=== PATIENT | female | born 1955 | race Caucasian/White ===

== ENCOUNTER 2016-12-20 12:09 | Emergency (ER) | payer MEDICARE, BC ==
[~2016-12-20] VITALS: Ht 172.7 cm; Wt 77.0 kg
[~2016-12-20 12:09] MED LIST: AMBI5TAB PO; AUGM875T PO; BUPR150CR PO; CITA40TA4 PO; GABA800T PO; HYDR5SYP10 PO; LANS30CA PO; METF1000 PO; MOME17I EACH NARE; ROSU10 PO; TIZA2CAP3 PO
[2016-12-20 12:26] VITALS: BP 128/64; PULSE 65; RESP 15; TEMP 97.7; O2SAT 98
[2016-12-20] MEDS ORDERED: DEXAMETHASONE SOD PHOS 20 MG/5 ML VIAL IM ONE (15:30)
[2016-12-20] MEDS ORDERED: ORPHENADRINE INJ 60 MG/2 ML AMP IM ONE (15:30)
[2016-12-20] MEDS ORDERED: KETOROLAC TROMETHAMINE 60 MG/2 ML (IM) VIAL IM ONE (15:30)
[2016-12-20] MEDS ORDERED: ONDANSETRON ODT 4 MG TAB PO ONE (15:30)
--- NOTE | 2016-12-20 15:31 | PD ---
HPI Chief Complaint: Back/ Neck Pain or Injury Time Seen by Provider: 15:28 Travel History International Travel<30 days: No Contact w/Intl Traveler<30days: No Traveled to known affect area: No History of Present Illness HPI Patient is a 61-year-old female presenting to the emergency department for evaluation of low back pain. Patient states she got out of the shower yesterday morning and bent down to picker and packer her nightgown and when she stood up her back tightened up. She denies any numbness or tingling in her lower extremities, no bladder or bowel incontinence, no saddle paresthesia. Patient reports the pain is a 10 out of 10 and feels tight and sore.. She took ibuprofen and tizanidine last night only. PFSH Past Medical History Anxiety: Yes Depression: Yes Cancer: No Cardiovascular Problems: No Diabetes: Yes Diminished Hearing: No Endocrine: No Genitourinary: No Hepatitis: No Hiatal Hernia: No Hypertension: Yes Immune Disorder: No Musculoskeletal: Yes (arthritis ) Neurologic: No Reproductive: No Respiratory: No Immunizations Current: Yes Migraines: Yes Thyroid Disease: No Menopausal: Yes Past Surgical History Abdominal Surgery: No AICD: No Body Medical Devices: hardware in neck from surgery Ear Surgery: No Endocrine Surgery: No Eye Surgery: No Genitourinary Surgery: No Joint Replacement: No Oral Surgery: No Pacemaker: No Thoracic Surgery: Yes (CERVICAL FUSION 2012) Tonsillectomy: Yes Other Surgery: Yes (hip surgery) Social History Alcohol Use: Yes (OCC) Tobacco Use: No Substance Use: No Allergies-Medications (Allergen,Severity, Reaction): Coded Allergies: No Known Allergies (Unverified , 12/20/16) Reported Meds & Prescriptions Reported Meds & Active Scripts Active Metformin (Metformin HCl) 1,000 Mg Tab 1,000 Mg PO BIDPC With meals Reported Levocetirizine 5 Mg Tab 5 Mg PO DAILY Motrin Ib (Ibuprofen) 200 Mg Tab 800 Mg PO Q4H PRN Gabapentin 800 Mg Tab 800 Mg PO QID Lansoprazole 30 Mg Capdr 30 Mg PO DAILY Tizanidine (Tizanidine HCl) 2 Mg Cap 2 Mg PO HS Citalopram (Citalopram Hydrobromide) 40 Mg Tab 40 Mg PO DAILY Wellbutrin SR 12 HR (Bupropion HCl) 150 Mg Tab 450 Mg PO DAILY Review of Systems Except as stated in HPI: all other systems reviewed are Neg Musculoskeletal: Positive: Myalgias, Cramping, Pain Physical Exam Narrative GENERAL: Well-developed, well-nourished, alert elderly female. Appears uncomfortable, in no acute distress. SKIN: Focused skin assessment warm/dry. HEAD: Atraumatic. Normocephalic. EYES: Pupils equal and round. No scleral icterus. No injection or drainage. ENT: No nasal bleeding or discharge. Mucous membranes pink and moist. NECK: Trachea midline. No JVD. CARDIOVASCULAR: Regular rate and rhythm. No murmur appreciated. RESPIRATORY: No accessory muscle use. Clear to auscultation. Breath sounds equal bilaterally. GASTROINTESTINAL: Abdomen soft, non-tender, nondistended. Hepatic and splenic margins not palpable. MUSCULOSKELETAL: No obvious deformities. No clubbing. No cyanosis. No edema. Tenderness to palpation paraspinal musculature in the lumbar region more so on the right than the left. Full range of motion in bilateral lower extremities. Patient is neurovascularly intact. Patient observed ambulating in the emergency department with cane. NEUROLOGICAL: Awake and alert. No obvious cranial nerve deficits. Motor grossly within normal limits. Normal speech. PSYCHIATRIC: Appropriate mood and affect; insight and judgment normal. Data Data Last Documented VS Vital Signs Date Time Temp Pulse Resp B/P Pulse Ox O2 Delivery O2 Flow Rate FiO2 12/20/16 12:26 97.7 65 15 128/64 98 Orders Ketorolac Inj (Toradol Inj) (12/20/16 15:30) Orphenadrine Inj (Norflex Inj) (12/20/16 15:30) Dexamethasone Inj (Decadron Inj) (12/20/16 15:30) Ondansetron Odt (Zofran Odt) (12/20/16 15:30) Hip, Uni(Ap&Lat) Wo Ap Pelvis (12/20/16 ) MDM Medical Decision Making Medical Screen Exam Complete: Yes Emergency Medical Condition: Yes Interpretation(s) Vital Signs Date Time Temp Pulse Resp B/P Pulse Ox O2 Delivery O2 Flow Rate FiO2 12/20/16 12:26 97.7 65 15 128/64 98 Differential Diagnosis Sprain versus strain versus discogenic pain versus other Narrative Course Patient is a 61-year-old female presenting to return for evaluation of low back pain that resulted after she bent down to picker and packer her nightgown yesterday morning. Exam appears most consistent with muscle spasms, muscle strain. Patient is neurovascularly and neurologically intact. Patient will be given Toradol, dexamethasone, Norflex in the emergency department. Will reassess. Patient reports improvement in her pain. Imaging of the right hip was negative , hardware is intact. Patient is encouraged follow-up with her primary doctor, alternate heat and ice the affected area, continue range of motion exercises, avoid bed rest. She was encouraged return to emergency department any new or worsening symptoms. Patient is stable for discharge. Diagnosis Primary Impression: Strain of lumbar paraspinal muscle Qualified Code: S39.012A - Strain of lumbar paraspinal muscle, initial encounter Additional Impression: Spasm of lumbar paraspinous muscle Referrals: Primary Care Physician Patient Instructions: General Instructions, Muscle Spasm (ED), Muscle Strain ( ED) Additional Instructions: Follow-up with her primary doctor Alternate heat and ice the affected area, continue range of motion exercises, avoid bed rest, avoid exacerbating activities Take medications as directed Do not drive or operate heavy machinery taking narcotic pain medication Return to emergency department for any new or worsening symptoms Med/Other Pt SpecificInfo: Prescription(s) given Scripts Ibuprofen 800 Mg [id number] Mg PO Q8H PRN (Pain/Inflammation) 10 Days Ref 0 Prov:Ree Dave 12/20/16 Cyclobenzaprine (Flexeril)10 Mg Tab10 Mg PO TID PRN (MUSCLE SPASM) 10 Days Ref 0 Prov:Ree Dave 12/20/16 Tramadol 50 Mg Tab50 Mg PO Q6H PRN (PAIN) #10 TAB Ref 0 Prov:Timothy Kaur MD 12/20/16 Disposition: 01 DISCHARGE HOME Condition: Stable Ree Dave Dec 20, 2016 15:31
[2016-12-20] MEDS ORDERED: LEVOTAB PO (15:38)
[2016-12-20] MEDS ORDERED: MOTR200T4 PO (15:38)
--- NOTE | 2016-12-20 16:38 | RADHPO ---
EXAM DATE/TIME: 12/20/2016 16:20 [facility] COMPARISON: HIP RIGHT (AP&LAT 2/3VWS) WO AP PELVIS, November 30, 2015, 11:24. INDICATIONS : Right hip and lower back pain after patient bent over too far yesterday MEDICAL HISTORY : None. SURGICAL HISTORY : Total right hip replacement ENCOUNTER: Initial ACUITY: 1 day PAIN SCORE: 9/10 LOCATION: Right entire hip FINDINGS: A right hip arthroplasty is present. There are no radiographic findings to suggest loosening. There i s no evidence of acute fracture. Bony mineralization is normal. CONCLUSION: 1. There is no evidence of acute fracture. Tenzin Leal MD on December 20, 2016 at 16:37 Board Certified Radiologist. This report was verified electronically.
[2016-12-20] MEDS ORDERED: TRAM50TA PO (16:43)
[2016-12-20] MEDS ORDERED: CYCL1TAB29 PO (16:48)
[2016-12-20] MEDS ORDERED: IBUP800T23 PO (16:48)
[2016-12-26] MEDS ORDERED: TRAM50TA PO (11:05)
[2016-12-26] MEDS ORDERED: CYCL1TAB29 PO (11:06)
[2016-12-26] MEDS ORDERED: DICY10 PO (11:07)
[2016-12-26] MEDS ORDERED: KETO60IN6 IM (11:12)
[2016-12-26] MEDS ORDERED: METH125I2 IM (11:13)
[2016-12-26] MEDS ORDERED: ZOFR4TAB PO (11:17)
[2017-01-03] MEDS ORDERED: TRAM50TA PO (14:52)
== END 2016-12-20 16:59 | disposition home or self-care (01) ==
LOC: PHED 12:09 → PHEFT 16:59
DX: S39.012A Strain of muscle, fascia and tendon of lower back, initial encounter (principal); M62.830 Muscle spasm of back; E11.9 Type 2 diabetes mellitus without complications; I10 Essential (primary) hypertension; M19.90 Unspecified osteoarthritis, unspecified site; X50.1XXA Overexertion from prolonged static or awkward postures, initial encounter; Y92.002 Bathroom of unspecified non-institutional (private) residence as the place of occurrence of the external cause; F41.9 Anxiety disorder, unspecified; F32.9 Major depressive disorder, single episode, unspecified
CPT/HCPCS: 73502; 96372; 99283; J1100; J1885; J2360

== ENCOUNTER 2017-07-31 05:08 | Inpatient (IN) | payer MEDICARE, BC ==
[~2017-07-31] VITALS: Ht 172.7 cm; Wt 78.0 kg
[~2017-07-31 05:08] MED LIST changes: -AMBI5TAB PO; -AUGM875T PO; +CALC1TAB87 PO; +GLUC500T4 PO; -HYDR5SYP10 PO; +IBUP1TAB7 PO; +LEVOTAB PO; +METF-382 PO; -METF1000 PO; -MOME17I EACH NARE; +MULT-65 PO; +SACC1CAP3 PO; +TRAM50TA PO; +VITA1000 PO; +VITA100022 PO; +VITA500C18 PO; +ZOFR4TAB PO
[2017-07-31] MEDS ORDERED: BUPIVACAINE LIPOSOME PF 1.3% 20 ML VIAL ONE (05:58)
[2017-07-31] MEDS ORDERED: ONDANSETRON HCL 4 MG/2 ML VIAL ONE (05:59)
[2017-07-31] MEDS ORDERED: INSULIN HUMAN REGULAR 1,000 UNITS/10 ML VIAL SQ PRN (06:00)
[2017-07-31] MEDS ORDERED: CHLORHEXIDINE GLUCONATE 2 % 1 PACK (2 CLOTHS) TOPICAL PRN (06:00)
[2017-07-31] MEDS ORDERED: SODIUM CHLORID 0.9% 500 ML IV PRN (06:00)
[2017-07-31] MEDS ORDERED: METOPROLOL TARTRATE 25 MG TAB PO PRN (06:00)
[2017-07-31] MEDS ORDERED: POVIDONE IODINE 5% (ANTISEPSIS KIT) 4 APPLICATIONS EACH NARE PRN (06:00)
[2017-07-31] MEDS ORDERED: LACTATED RINGER'S 1000 ML IV PRN (06:00)
[2017-07-31] MEDS ORDERED: CHLORHEXIDINE GLUCONATE 4% SOLN 120 ML BTL TOPICAL SCH (06:00)
[2017-07-31] MEDS ORDERED: ceFAZolin 2 GM PREMIX 50 ML IV SCH (06:00)
[2017-07-31] MEDS ORDERED: GENTAMICIN SULFATE 80 MG/2 ML VIAL ONE (06:05)
[2017-07-31] MEDS ORDERED: EXPAREL PERI-ARTICULAR INJECTION (TOTAL VOL. 100 ML) P-ARTICULR SCH ×2 (07:00)
[2017-07-31] MEDS ORDERED: Post-op Orders (for Pharmacy) MISC XX ONE (07:00)
[2017-07-31] MEDS ORDERED: ONDANSETRON HCL 4 MG/2 ML VIAL IVP PRN (07:00)
[2017-07-31] MEDS ORDERED: TRANEXAMIC ACID INJ 0 MG in SODIUM CHLORIDE 0.9% INJ 100 ML IV SCH (07:00)
[2017-07-31] MEDS ORDERED: SODIUM CHLORIDE 0.9% FLUSH 5 ML FLUSH IVF PRN (07:00)
[2017-07-31] MEDS ORDERED: ZOLPIDEM TARTRATE 5 MG TAB PO PRN (07:00)
[2017-07-31] MEDS ORDERED: TRANEXAMIC ACID INJ 779 MG in SODIUM CHLORIDE 0.9% INJ 100 ML IV SCH ×2 (07:00→10:00)
[2017-07-31] MEDS ORDERED: MAGNESIUM HYDROXIDE SUSP 30 ML CUP PO PRN (07:00)
--- NOTE | 2017-07-31 07:06 | HHI.FF ---
Face to Face Verification Diagnosis: (1) Status post total left knee replacement Physical Therapy Gait training Knee: Total knee, Protocol: Left, Gait training, Full weight bearing Left LE Weight Bearing: WB as tolerated Left LE Range of Motion: Active ROM (AROM, AAROM, PROM. ROM goal 0 to 135 degrees. ROM in the OR was 0 to 150 degrees.) Nursing Nursing: Dressing changes (Start on postop day 7.) Dressing Changes: Daily dressing change (Start on postop day 7.), Coverderm/ Prim[place] Additional Instructions Remove steristrips on postop day 14. I have seen patient Rasheeda Sandhu on 07/31/17. My clinical findings support the need for the requested home health care services because: Ltd mobility - disease progression Limited ability to care for self High risk of falls I certify that my clinical findings support that this patient is homebound because: Post-op weakness Unsteady gait/balance Unsafe to leave home unassisted Tressa Clay MD (Charles) Jul 31, 2017 07:06
[2017-07-31] MEDS ORDERED: DEXAMETHASONE SOD PHOS 4 MG/ML VIAL IV PUSH ONE (07:51)
[2017-07-31] MEDS ORDERED: KETOROLAC TROMETHAMINE 30 MG/ML (IVP) VIAL IVP SCH (08:00)
[2017-07-31] MEDS ORDERED: NON-FORMULARY DRUG (Glucosamine-Chondroitin 1 TAB) PO SCH (09:00)
[2017-07-31] MEDS ORDERED: NON-FORMULARY DRUG (Ascorbic Acid ER (Vitamin C Sr) 500 MG) PO SCH (09:00)
[2017-07-31] MEDS ORDERED: metFORMIN HCL 500 MG TAB PO SCH (09:00)
[2017-07-31] MEDS: SODIUM CHLORIDE 0.9% FLUSH 5 ML FLUSH IVF SCH ×2 (09:00→20:49)
[2017-07-31] MEDS ORDERED: PT OWN MED: LEVOCETIRIZINE 5MG PO DAILY PO SCH (09:00)
[2017-07-31] MEDS ORDERED: NON-FORMULARY DRUG (Saccharomyces Boulardii (Probiotic) 250 MG) PO SCH (09:00)
[2017-07-31] MEDS ORDERED: ASPI1TAB56 PO (09:34)
--- NOTE | 2017-07-31 09:41 | HHI.PR ---
Immediate Post Op Note Procedure Date: Jul 31, 2017 Pre Op Diagnosis: (1) Primary osteoarthritis of left knee Post Op Diagnosis: (1) Primary osteoarthritis of left knee Surgeon: Breezy Clay MD Electronic Heat Seal Operator(s): FELY Oviedo Procedure: Left total knee arthroplsaty with Halley Triathlon prosthesis, uncemented. Findings: OA left knee. Complications: None Specimen(s) removed: none Estimated blood loss: 300 ml Anesthesia: Regional Block (adductor canal), Spinal, Local Drains: Hemovac (2) Tourniquet time (min at mmHg) 0 Patient to: PACU Patient Condition: Good Implant/Devices: SEE IMPLANT LOG (if applicable) Date/Time of Procedure: SEE SURGICAL CARE RECORD Tressa Clay MD (Charles) Jul 31, 2017 09:41
[2017-07-31] MEDS ORDERED: DO NOT ADM ANY ANTICOAGULANT DRUGS PRN (09:50)
[2017-07-31] MEDS ORDERED: *morphine SULFATE 8 MG/ML PERIprocedure ONLY ONE ×3 (10:00→10:39)
[2017-07-31] MEDS: LACTATED RINGER'S 1000 ML INJ 1,000 ML IV SCH ×2 (10:00→19:30)
--- NOTE | 2017-07-31 10:21 | MP ---
cc: Mitzy MCKNIGHT. DATE OF SURGERY: 07/31/2017 PREOPERATIVE DIAGNOSIS Primary osteoarthritis, left knee. POSTOPERATIVE DIAGNOSIS Primary osteoarthritis, left knee. OPERATION PERFORMED Left total knee arthroplasty with Halley Triathlon prosthesis (uncemented). SURGEON Tressa Mcknight MD ANESTHESIA Spinal with supplemental adductor canal block regional and local with Exparel. INDICATIONS AND FINDINGS This 62-year-old woman has had left knee pain that has been progressive in nature and beginning about eight years ago. Her ambulation tolerance is now one mile. She has stiffness on motion. She has occasional giving-way and difficulty ascending and descending stairs. She has pain when sitting for any period of time. Treatment has included anti-inflammatory agents, analgesics, activity modification, intraarticular steroids, Synvisc injections, ambulatory aids and exercise. This has not helped her. Physical findings showed some medial laxity with genu varum and palpable osteophytes. X-rays showed osteoarthritis with loss of articular cartilage to [id number] in the medial compartment with subchondral sclerosis and multiple osteophytes. Operative findings were consistent with the radiographic findings with there being loss of articular cartilage to exposed subchondral bone in the medial compartment especially with also some patellofemoral and lateral compartment degenerative change. Osteophytes were noted. IMPLANTS The prosthesis used was a Halley Triathlon prosthesis with the femur being a size 5, left cruciate-retaining, uncemented, tibia being a tritanium baseplate size 4, and the spacer a size 4 x 9 mm cruciate-retaining of X3 polyethylene. The patella was an asymmetric tritanium backed patella size 35 mm. PROCEDURE The patient was brought to the clean-air operating suite and a spinal anesthetic and adductor canal block were performed. She was then placed in a supine position on the operating table with a bolster under the left hip and pneumatic tourniquet about the left thigh. The limb was then prepped with alcohol, Hibiclens and ChloraPrep, and draped in the usual manner with the knee draped free. She received Ancef as a prophylactic antibiotic according to protocol. She also received tranexamic acid preoperatively to assist with hemostasis. An appropriate timeout procedure was carried out. Local anesthesia was administered into the incision site prior to making the incision. An incision was then made in the anterior aspect of the knee from three fingerbreadths above the superior medial pole of the patella down to the tibial tubercle on the medial side. The incision was deepened through subcutaneous tissues to the retinacular structures which were exposed medially and laterally. A medial retinacular incision was made from the superior medial pole of the patella down to the tibial tubercle and into the quadriceps tendon splitting it longitudinally in the medial one-third. The patella was reflected. The infrapatellar fat pad was debulked. Medial and lateral dissection was carried out. Medial and lateral meniscectomies were initiated. The posterior surface of the patella was excised was excised with the oscillating saw taking care to prevent injury to the ligamentous structures and tendinous structures. The patella protector was applied to the posterior surface of the patella. Fenestrations were made in the distal femur and proximal tibia for the intramedullary referencing guides. The anterior cruciate ligament was excised. The distal femoral cutting guide and jig were assembled for a 5 degree, 8 mm cut. The cutting block was stabilized with pins. The jig was removed. The distal femoral cut was completed. The sizing guide was positioned in place and stabilized with pins. The size of the patella was between a size 4 and a size 5. A size 5 cutting block was positioned in place. Anterior and posterior cuts were made followed by posterior and anterior chamfer cuts. The size 4 cutting block would have notched the femur. A bone plug was placed in the distal femur. Osteophytes were trimmed. Attention was directed to the tibia. Medial and lateral meniscectomies were completed. The cutting block was then positioned in place and stabilized with pins. The proximal tibial cut level was determined with a spacer block. The proximal tibial cut was then made with the oscillating saw taking care to prevent injury to ligamentous structures. The spacer block showed that this was appropriate. The trial prosthesis was inserted, however, this showed that this was relatively tight. For this reason the cutting block was again positioned in place with pins and the cutting block dropped another 2 mm. A proximal tibial cut was completed again. The fenestration in the femur was plugged. The trial prostheses were then positioned in place with the sizes as noted above. Patella drill holes were made. The patella trial was positioned in place. The knee was taken through a range of motion which was easily 0 degrees extension to 150 degrees of flexion with excellent stability in flexion and extension. Femoral drill holes were made. The femoral trial was removed. The tibial trial was left in place. The tibial punch was impacted through its guide and removed. The tibial drill guide was positioned and drill holes made. The cut ends of bone were cleaned with pulse lavage. Local anesthetic was administered throughout the knee with Exparel. The tibial baseplate was impacted into place and seated appropriately. The spacer was inserted and impacted into place. The femoral component was then impacted into place and seated appropriately. The patella was then positioned in place and seated appropriately with the patella vise. The remainder of the Exparel was injected throughout the knee. Drains were brought out the superolateral aspect of the suprapatellar pouch. Wound closure then commenced using 0 Vicryl interrupted [id number] sutures for the retinacular and capsular structures and fascial structures, 2-0 Vicryl interrupted simple sutures with buried knots for the subcutaneous tissues and 4-0 Monocryl continuous subcuticular closure for the skin. The wound was dressed with Steri-Strips followed by silver-impregnated dressing, sterile Sof-Rol, cooling pad and Dax bandages. The patient was transferred from the operating room to the recovery room in satisfactory condition having tolerated the procedure well. Counts were correct. Specimens none. Estimated blood loss 300 mL. MD SAVANNAH Chowdhury/CHRISTELLE /9:49 AM /10:07 AM
--- NOTE | 2017-07-31 10:41 | RADRPT ---
EXAM DATE/TIME: 07/31/2017 09:58 [facility] COMPARISON: No previous studies available for comparison. INDICATIONS : Post op left total knee. MEDICAL HISTORY : Unobtainable. SURGICAL HISTORY : Unobtainable. ENCOUNTER: Initial ACUITY: 1 day PAIN SCORE: Non-responsive. LOCATION: Left knee. FINDINGS: AP and lateral views of the left knee demonstrate changes consistent with recent total knee arthropla sty with metallic hardware in place in the distal femur, proximal tibia, and patella. There is soft t issue gas present, as expected. A surgical drain is in place. CONCLUSION: Expected changes following recent left total knee arthroplasty. Boston Castrejon MD on July 31, 2017 at 10:38 Board Certified Radiologist. This report was verified electronically.
[2017-07-31] MEDS ORDERED: *HYDROmorphone PF 1 MG VIAL PERIprocedural Use ONLY ONE ×2 (10:59→12:34)
[2017-07-31] MEDS: ATORVASTATIN 20 MG TAB PO SCH (11:42)
[2017-07-31] MEDS: LANSOPRAZOLE SOLUTAB 30 MG TAB PO SCH (11:42)
[2017-07-31] MEDS: CYANOCOBALAMIN 1,000 MCG TAB PO SCH (11:42)
[2017-07-31] MEDS: MULTIVITAMIN TAB PO SCH (11:42)
[2017-07-31] MEDS: CITALOPRAM HYDROBROMIDE 40 MG TAB PO SCH (11:42)
[2017-07-31] MEDS: CHOLECALCIFEROL (VIT D3) 1000 UNIT TAB PO SCH (11:43)
[2017-07-31] MEDS ORDERED: SODIUM CHLORIDE 0.9% 20 ML VIAL IV ONE (12:00)
[2017-07-31] MEDS ORDERED: MIDAZOLAM HCL 2 MG/2 ML VIAL IV ONE (12:00)
[2017-07-31] MEDS ORDERED: NORMOSOL R INJ 1,000 ML IV ONE (12:00)
[2017-07-31] MEDS ORDERED: PROPOFOL 200 MG/20 ML AMP IV ONE (12:00)
[2017-07-31] MEDS ORDERED: DEXAMETHASONE SOD PHOS 4 MG/ML VIAL IV ONE (12:00)
[2017-07-31] MEDS: buPROPion HCL 100 MG SUSTAINED RELEASE TAB PO SCH ×2 (13:00→20:43)
[2017-07-31 13:18] VITALS: BP 107/65; PULSE 63; RESP 18; TEMP 96.3; O2SAT 99
--- NOTE | 2017-07-31 14:27 | PD.CONS ---
HPI Service [facility] Hospitalists Consult Requested By Dr. Clay Reason for Consult Medical management Primary Care Physician Shadi Goodman MD Diagnoses: (1) Diabetes mellitus, type II (2) Hyperlipidemia History of Present Illness The patient is a 62-year-old female seen following left total knee arthroplasty. Hospitalist consultation was requested for medical management. Patient reports history of type 2 diabetes mellitus as well as well controlled hyperlipidemia. She is having pain in the left knee and feels "shaky". No other complaints at this time. Review of Systems Constitutional: DENIES: Fever, Chills, Night Sweats Eyes: DENIES: Blurred vision, Vision loss Ears, nose, mouth, throat: DENIES: Hearing loss Respiratory: DENIES: Cough, Wheezing, Sputum production, Shortness of breath Cardiovascular: DENIES: Chest pain, Palpitations, Dyspnea on Exertion, Lower Extremity Edema Gastrointestinal: DENIES: Abdominal pain, Constipation, Diarrhea, Nausea, Vomiting Genitourinary: DENIES: Urinary frequency, Urinary incontinence, Urgency, Hematuria, Dysuria, Nocturia Musculoskeletal: COMPLAINS OF: Joint pain, DENIES: Muscle aches Integumentary: DENIES: Pruritus, Rash Hematologic/lymphatic: DENIES: Bruising Neurologic: DENIES: Headache Past Family Social History Allergies: Coded Allergies: hydrocodone (Verified Allergy, Mild, severe nausea vomiting, 07/31/17) Past Medical History Hyperlipidemia Type 2 diabetes mellitus Osteoarthritis GERD 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 Past Surgical History Left knee arthroscopy 2009 Cervical spine fusion 2012 Right total hip arthroplasty 2016 Reported Medications Bupropion XL 150 mg daily Calcium daily Celebrex 200 mg daily Citalopram 40 mg daily Crestor 10 mg daily Gabapentin 800 mg Ibuprofen 800 mg as needed Metformin 500 mg extended release daily Vitamin B12 daily Vitamin C daily Zofran as needed Family History Father has history of prostate cancer Mother had cancer Maternal grandfather with history of diabetes Paternal grandfather with history of rheumatoid arthritis Social History Denies alcohol, tobacco, or illicit drug use. Physical Exam Vital Signs Vital Signs Date Time Temp Pulse Resp B/P (MAP) Pulse Ox O2 Delivery O2 Flow Rate FiO2 07/31/17 13:04 19 07/31/17 13:00 62 16 110/59 (76) 97 Nasal Cannula 2 07/31/17 12:00 97.7 58 12 110/59 (76) 97 Nasal Cannula 2 07/31/17 11:30 54 12 124/62 (82) 97 Nasal Cannula 2 07/31/17 11:29 17 07/31/17 11:23 18 07/31/17 11:00 53 12 121/66 (84) 91 Nasal Cannula 2 07/31/17 10:45 53 16 111/56 (74) 96 Room Air 07/31/17 10:44 15 07/31/17 10:30 52 16 115/58 (77) 95 Room Air 07/31/17 10:21 16 07/31/17 10:15 51 15 115/58 (77) 100 Room Air 07/31/17 10:05 12 07/31/17 10:00 53 16 114/58 (76) 98 Room Air 07/31/17 09:50 96.8 55 18 114/59 (77) 100 Physical Exam GENERAL: Well-nourished, well-developed female in no acute distress. Appears somewhat uncomfortable. HEENT: Normocephalic, atraumatic. Pupils equal, round and reactive. Extraocular movements intact. No scleral icterus. No injection or drainage. Oropharynx is clear. Mucous membranes are moist. CARDIOVASCULAR: Regular rate and rhythm without murmurs, gallops, or rubs. RESPIRATORY: Clear to auscultation. No wheezes, rales, or rhonchi. Breathing is non-labored. GASTROINTESTINAL: Abdomen soft, non-tender, nondistended. EXTREMITIES: No lower extremity edema. No calf tenderness. Left leg heavily bandaged. PSYCH: Alert and oriented x 3. Imaging Last Impressions Knee X-Ray 07/31/17 0656 Signed Impressions: Service Date/Time: Monday, July 31, 2017 09:58 - CONCLUSION: Expected changes following recent left total knee arthroplasty. Boston Castrejon MD Assessment and Plan Assessment and Plan 1. Osteoarthritis: Status post left total knee arthroplasty. Management per orthopedic surgery. Continue pain control, bowel regimen. 2. Hyperlipidemia: Continue statin. 3. Diabetes mellitus type 2: Hold metformin. Monitor Accu-Cheks and cover with sliding scale insulin. 4. DVT prophylaxis: Aspirin. Shy, NANCY nesbitt. Armani Panda MD Jul 31, 2017 14:27
[2017-07-31] MEDS: HYDROmorphone HCL 2 MG TAB PO PRN (14:31)
[2017-07-31 16:00] VITALS: BP 120/61; PULSE 59; RESP 18; TEMP 97.4; O2SAT 100
[2017-07-31] MEDS ORDERED: HYDROmorphone HCL 2 MG TAB PO PRN (17:00)
[2017-07-31] MEDS: KETOROLAC TROMETHAMINE 30 MG/ML (IVP) VIAL IVP SCH ×2 (17:02→20:48)
[2017-07-31] MEDS: HYDROmorphone HCL PF 1 MG/ML VIAL IV PUSH PRN ×2 (17:27→21:58)
[2017-07-31 20:00] VITALS: BP 88/51; PULSE 78; RESP 16; TEMP 98.8; O2SAT 97
[2017-07-31 20:01] VITALS: O2SAT 100
[2017-07-31] MEDS: GABAPENTIN 400 MG CAP PO SCH (20:43)
[2017-08-01] VITALS (7 sets, daily range): BP systolic 90–119; BP diastolic 50–61; PULSE 65–80; RESP 16–18; TEMP 96.5–98.9; O2SAT 93–99
[2017-08-01] MEDS: HYDROmorphone HCL 2 MG TAB PO PRN ×4 (04:01→20:49)
[2017-08-01] MEDS: KETOROLAC TROMETHAMINE 30 MG/ML (IVP) VIAL IVP SCH ×4 (04:01→20:38)
[2017-08-01 06:18] LABS: HEMATOCRIT 26.1 % (35.0-46.0); REVIEW FLAG FINAL
[2017-08-01 06:44] LABS: BICARBONATE 25.5 MEQ/L (21.0-32.0)
--- NOTE | 2017-08-01 06:53 | PD.ORT.PN ---
Subjective Post Op Day #: 1 Subjective Remarks She does have some pain, as expected. She has questions. Range of Motion - 30 to 80 degrees. Distance Walked 3 feet with PT. Objective Vitals Vital Signs Date Time Temp Pulse Resp B/P (MAP) Pulse Ox O2 Delivery O2 Flow Rate FiO2 08/01/17 04:00 98.1 66 16 92/50 (64) 95 08/01/17 00:00 97.5 80 17 103/61 (75) 98 07/31/17 20:01 100 Nasal Cannula 2.00 07/31/17 20:00 98.8 78 16 88/51 (63) 97 07/31/17 16:00 97.4 59 18 120/61 (80) 100 07/31/17 13:18 96.3 63 18 107/65 (79) 99 07/31/17 13:04 19 07/31/17 13:00 62 16 110/59 (76) 97 Nasal Cannula 2 07/31/17 12:00 97.7 58 12 110/59 (76) 97 Nasal Cannula 2 07/31/17 11:30 54 12 124/62 (82) 97 Nasal Cannula 2 07/31/17 11:29 17 07/31/17 11:23 18 07/31/17 11:00 53 12 121/66 (84) 91 Nasal Cannula 2 07/31/17 10:45 53 16 111/56 (74) 96 Room Air 07/31/17 10:44 15 07/31/17 10:30 52 16 115/58 (77) 95 Room Air 07/31/17 10:21 16 07/31/17 10:15 51 15 115/58 (77) 100 Room Air 07/31/17 10:05 12 07/31/17 10:00 53 16 114/58 (76) 98 Room Air 07/31/17 09:50 96.8 55 18 114/59 (77) 100 I/O 07/31/17 07/31/17 07/31/17 08/01/17 08/01/17 08/01/17 07:00 15:00 23:00 07:00 15:00 23:00 Intake Total 1936 ml 580 ml 480 ml Output Total 340 ml 180 ml 150 ml Balance 1596 ml 400 ml 330 ml Intake Oral 480 ml 480 ml IV Total 336 ml 100 ml Other 1600 ml Output Drainage Total 140 ml 180 ml 150 ml Estimated Blood Loss 200 ml # Voids 1 1 3 # Bowel Movements 0 0 Result Diagram: 08/01/17 0536 Imaging Last 24 hours Impressions Knee X-Ray 07/31/17 0656 Signed Impressions: Service Date/Time: Monday, July 31, 2017 09:58 - CONCLUSION: Expected changes following recent left total knee arthroplasty. Boston Castrejon MD Objective Remarks She is resting, relatively comfortably, supine in bed in the CPM. The ROM in the CPM approaches 0 to 90 degrees. The dressing is dry and intact. The neurovascular status is intact Assessment & Plan Ortho Post Op Day #: 1 Problem List: (1) Status post total left knee replacement ICD Codes: Z96.652 - Presence of left artificial knee joint Plan: Continue postop care and PT. Assessment and Plan Condition: Good. Orthopaedically stable. DVT prophylaxis: TEDs, ASA, sequentials. Discharge plans: Home with [facility]. Has appointment. Rx: Nucynta from office. Tressa Clay MD (Charles) Aug 01, 2017 06:53
[2017-08-01] MEDS: LACTATED RINGER'S 1000 ML INJ 1,000 ML IV SCH ×2 (08:00→20:25)
[2017-08-01] MEDS: buPROPion HCL 100 MG SUSTAINED RELEASE TAB PO SCH ×2 (08:21→20:39)
[2017-08-01] MEDS: LANSOPRAZOLE SOLUTAB 30 MG TAB PO SCH (08:22)
[2017-08-01] MEDS: ASPIRIN EC 81 MG TABEC PO SCH ×2 (08:22→20:37)
[2017-08-01] MEDS: ATORVASTATIN 20 MG TAB PO SCH (08:22)
[2017-08-01] MEDS: CITALOPRAM HYDROBROMIDE 40 MG TAB PO SCH (08:22)
[2017-08-01] MEDS: MULTIVITAMIN TAB PO SCH (08:22)
[2017-08-01] MEDS: CHOLECALCIFEROL (VIT D3) 1000 UNIT TAB PO SCH (08:22)
[2017-08-01] MEDS: CYANOCOBALAMIN 1,000 MCG TAB PO SCH (08:23)
[2017-08-01] MEDS: SODIUM CHLORIDE 0.9% FLUSH 5 ML FLUSH IVF SCH ×2 (08:28→20:40)
--- NOTE | 2017-08-01 13:47 | HHI.PR ---
Subjective Remarks Follow-up diabetes. Patient is reporting significant pain in her left knee. Does not feel that she is ready to go home today. Denies chest pain, dyspnea, nausea, vomiting. Objective Vitals Vital Signs Date Time Temp Pulse Resp B/P (MAP) Pulse Ox O2 Delivery O2 Flow Rate FiO2 08/01/17 12:00 98.2 76 18 90/55 (67) 93 08/01/17 08:00 96.5 74 18 98/54 (69) 99 08/01/17 04:00 98.1 66 16 92/50 (64) 95 08/01/17 00:00 97.5 80 17 103/61 (75) 98 07/31/17 20:01 100 Nasal Cannula 2.00 07/31/17 20:00 98.8 78 16 88/51 (63) 97 07/31/17 16:00 97.4 59 18 120/61 (80) 100 I/O 07/31/17 07/31/17 07/31/17 08/01/17 08/01/17 08/01/17 07:00 15:00 23:00 07:00 15:00 23:00 Intake Total 1936 ml 580 ml 480 ml Output Total 340 ml 180 ml 150 ml Balance 1596 ml 400 ml 330 ml Intake Oral 480 ml 480 ml IV Total 336 ml 100 ml Other 1600 ml Output Drainage Total 140 ml 180 ml 150 ml Estimated Blood Loss 200 ml # Voids 1 1 3 # Bowel Movements 0 0 Result Diagram: 08/01/17 0536 08/01/17 0536 Imaging Last Impressions Knee X-Ray 07/31/17 0656 Signed Impressions: Service Date/Time: Monday, July 31, 2017 09:58 - CONCLUSION: Expected changes following recent left total knee arthroplasty. Boston Castrejon MD Objective Remarks General: No acute distress. Appears uncomfortable. Heart: Regular rate and rhythm. No murmur. Lungs: Clear to auscultation bilaterally. No wheezes, rales, or rhonchi. Breathing is nonlabored. Abdomen: Soft, nontender, nondistended. Extremities: No lower extremity edema. Left leg bandaged. Psych: Alert and oriented. Procedures 07/30/17 left total knee arthroplasty Urinary Catheter: No Vascular Central Line Catheter: No A/P Problem List: (1) Diabetes mellitus, type II ICD Code: E11.9 - Type 2 diabetes mellitus without complications Status: Acute (2) Hyperlipidemia ICD Code: E78.5 - Hyperlipidemia, unspecified Status: Acute Assessment and Plan 1. Osteoarthritis: Status post left total knee arthroplasty. Management per orthopedic surgery. Continue pain control, bowel regimen. 2. Hyperlipidemia: Continue statin. 3. Diabetes mellitus type 2: Hold metformin. Monitor Accu-Cheks and cover with sliding scale insulin. 4. Postoperative anemia: Monitor H&H. 5. DVT prophylaxis: Aspirin. NANCY Begum. Discharge Planning Per orthopedic surgery. Likely discharge tomorrow as patient is still having significant pain today. Armani Panda MD Aug 01, 2017 13:47
[2017-08-01] MEDS ORDERED: GLUCAGON 1 MG/ML VIAL OTHER PRN (14:00)
[2017-08-01] MEDS ORDERED: DEXTROSE 50% IN WATER 50 ML VIAL(D50) IV PUSH PRN (14:00)
[2017-08-01] MEDS: traMADol HCL 50 MG TAB PO PRN ×2 (14:36→18:26)
[2017-08-01] MEDS: INSULIN ASPART SUPPLEMENTAL SCALE SQ SCH ×2 (16:57→20:39)
[2017-08-01] MEDS: DOCUSATE SODIUM 100 MG CAP PO SCH (20:38)
[2017-08-01] MEDS: GABAPENTIN 400 MG CAP PO SCH (20:38)
[2017-08-02 03:10] VITALS: BP 99/49; PULSE 71; RESP 17; TEMP 98.3; O2SAT 100
[2017-08-02] MEDS: KETOROLAC TROMETHAMINE 30 MG/ML (IVP) VIAL IVP SCH (05:03)
[2017-08-02] MEDS: HYDROmorphone HCL 2 MG TAB PO PRN ×4 (05:04→16:22)
[2017-08-02 06:54] LABS: REVIEW FLAG FINAL
[2017-08-02] MEDS: traMADol HCL 50 MG TAB PO PRN ×3 (07:37→17:12)
[2017-08-02 08:00] VITALS: BP 100/56; PULSE 74; RESP 18; TEMP 98; O2SAT 98
[2017-08-02] MEDS: INSULIN ASPART SUPPLEMENTAL SCALE SQ SCH ×2 (08:00→12:57)
--- NOTE | 2017-08-02 08:13 | PD.ORT.PN ---
Subjective Post Op Day #: 2 Subjective Remarks She still has some pain, as expected. She has nausea with codeine and its derivatives but can take Nucynta (not on [facility] formulary). Range of Motion -10 to 88 degrees. Distance Walked 70 feet in AM; 50 feet in PM. Objective Vitals Vital Signs Date Time Temp Pulse Resp B/P (MAP) Pulse Ox O2 Delivery O2 Flow Rate FiO2 08/02/17 03:10 98.3 71 17 99/49 (66) 100 08/01/17 23:00 97.2 65 17 94/54 (67) 98 08/01/17 19:20 98.1 69 18 119/60 (79) 99 08/01/17 16:00 98.9 76 18 110/59 (76) 94 08/01/17 12:00 98.2 76 18 90/55 (67) 93 I/O 08/01/17 08/01/17 08/01/17 08/02/17 08/02/17 08/02/17 07:00 15:00 23:00 07:00 15:00 23:00 Intake Total 480 ml 600 ml 360 ml 480 ml Output Total 150 ml 300 ml 50 ml Balance 330 ml 600 ml 60 ml 430 ml Intake Oral 480 ml 600 ml 360 ml 480 ml Output Drainage Total 150 ml 300 ml 50 ml # Voids 3 3 2 2 # Bowel Movements 0 0 0 0 Result Diagram: 08/02/17 0633 08/01/17 0536 Imaging Last 24 hours Impressions Knee X-Ray 07/31/17 0656 Signed Impressions: Service Date/Time: Monday, July 31, 2017 09:58 - CONCLUSION: Expected changes following recent left total knee arthroplasty. Boston Castrejon MD Objective Remarks She is resting, relatively comfortably, supine in bed in the CPM. The ROM in the CPM approaches 0 to 90 degrees. The dressing is dry and intact. The neurovascular status is intact Assessment & Plan Ortho Post Op Day #: 2 Problem List: (1) Status post total left knee replacement ICD Codes: Z96.652 - Presence of left artificial knee joint Plan: Continue postop care and PT. Assessment and Plan Condition: Good. Orthopaedically stable. DVT prophylaxis: TEDs, ASA, sequentials. Discharge plans: Home with [facility]. Has appointment. Rx: Nucynta from office. Tressa Clay MD (Charles) Aug 02, 2017 08:12
[2017-08-02] MEDS ORDERED: TRAM50TA PO (08:28)
[2017-08-02] MEDS ORDERED: TRAM50 PO (08:28)
[2017-08-02] MEDS: LANSOPRAZOLE SOLUTAB 30 MG TAB PO SCH (08:58)
[2017-08-02] MEDS: CHOLECALCIFEROL (VIT D3) 1000 UNIT TAB PO SCH (08:58)
[2017-08-02] MEDS: ASPIRIN EC 81 MG TABEC PO SCH (08:58)
[2017-08-02] MEDS: DOCUSATE SODIUM 100 MG CAP PO SCH (08:59)
[2017-08-02] MEDS: CITALOPRAM HYDROBROMIDE 40 MG TAB PO SCH (08:59)
[2017-08-02] MEDS: MULTIVITAMIN TAB PO SCH (08:59)
[2017-08-02] MEDS: buPROPion HCL 100 MG SUSTAINED RELEASE TAB PO SCH (08:59)
[2017-08-02] MEDS: ATORVASTATIN 20 MG TAB PO SCH (08:59)
[2017-08-02] MEDS: CYANOCOBALAMIN 1,000 MCG TAB PO SCH (08:59)
[2017-08-02 12:00] VITALS: BP 120/61; PULSE 69; RESP 18; TEMP 98.7; O2SAT 99
== END 2017-08-02 17:24 | disposition home health service (06) | DRG 470 ==
LOC: HSDI 05:08 → N06B 13:15
PROVIDERS: ADMIT Orthopaedic Surgery; ATTEND Orthopaedic Surgery
PROC: 3E0T3BZ Introduction of Anesthetic Agent into Peripheral Nerves and Plexi, Percutaneous Approach (ICD-10-PCS; 2017-07-31)
PROC: 0SRD0JA Replacement of Left Knee Joint with Synthetic Substitute, Uncemented, Open Approach (ICD-10-PCS; principal; 2017-07-31 06:50)
DX: M17.12 Unilateral primary osteoarthritis, left knee (principal); M21.169 Varus deformity, not elsewhere classified, unspecified knee; F32.9 Major depressive disorder, single episode, unspecified; E11.9 Type 2 diabetes mellitus without complications; Z79.84 Long term (current) use of oral hypoglycemic drugs; D64.9 Anemia, unspecified; E78.5 Hyperlipidemia, unspecified; K21.9 Gastro-esophageal reflux disease without esophagitis; Z96.641 Presence of right artificial hip joint; Z98.1 Arthrodesis status
CPT/HCPCS: 73560; 80048; 82948; 85014; 85018; 86850; 86900; 86901; 94150; C1776; C9290; J0690; J1100; J1170; J1580; J1815; J1885; J2250; J2270; J2405; J7120